=== PATIENT | male | born 1955 | race Caucasian/White ===

== ENCOUNTER 2016-07-01 19:00 | Inpatient (IN) | payer MEDICAID, MEDICARE ==
[~2016-07-01] VITALS: Ht 180.3 cm; Wt 62.2 kg
[~2016-07-01 19:00] MED LIST: ARIP15TA3 PO; ARIP400S IM; DIVA500T35 PO; DSS100 PO; LEVE500T53 PO; OMEP20 PO
[2016-07-01 20:16] VITALS: BP 102/63
[2016-07-01] MEDS: LORazepam 2 MG TABLET PO PRN (23:08)
[2016-07-02] MEDS: ZOLPIDEM TARTRATE 10 MG TABLET PO PRN ×2 (01:10→21:06)
[2016-07-02] MEDS: QUEtiapine FUMARATE 100 MG TABLET PO PRN ×2 (01:10→14:46)
[2016-07-02 01:11] VITALS: BP 108/77
[2016-07-02] MEDS ORDERED: PNEUMOCOCCAL VACCINE POLYVALENT 0.5 ML VIAL [PPSV23] IM ONE (01:45)
[2016-07-02] MEDS ORDERED: -PHARMACY VACCINE NOTE- MISC ONE ×2 (01:45)
[2016-07-02] MEDS: LORazepam 2 MG TABLET PO PRN ×3 (05:54→19:56)
[2016-07-02 06:49] LABS: BASOPHILS % (AUTO) 3.4 % (0.0-2.0); EOSINOPHILS % (AUTO) 3.8 % (1.0-6.0); HEMATOCRIT 29.9 % (41-53); HEMOGLOBIN 9.3 g/dL (13.5-17.5); LYMPHOCYTES # (AUTO) 1.9 K/uL (1.0-4.8); LYMPHOCYTES % (AUTO) 32.5 % (22.0-44.0); MEAN CORPUSCULAR HEMOGLOBIN 24.9 pg (26.0-34.0); MEAN CORPUSCULAR HGB CONC 30.9 G/dL (31.0-37.0); MEAN CORPUSCULAR VOLUME 81 fL (80-100); MONOCYTES # (AUTO) 0.6 K/uL (0.1-1.0); MONOCYTES % (AUTO) 9.7 % (2.0-9.0); NEUTROPHILS % (AUTO) 50.6 % (40.0-70.0); PLATELET COUNT (AUTO) 334 K/uL (150-450); RED BLOOD CELL COUNT(AUTO) 3.71 MIL/uL (4.50-5.90); RED CELL DISTRIBUTION WIDTH 20.1 % (11.5-14.5); WHITE BLOOD COUNT (AUTO) 5.9 K/uL (4.5-11.0)
[2016-07-02 06:51] LABS: ALANINE AMINOTRANSFERASE 18 U/L (12-78); ALBUMIN 2.8 g/dL (3.4-5.0); ANION GAP 10 mmol/L (8-16); ASPARTATE AMINOTRANSFERASE 16 U/L (15-37); BILIRUBIN,TOTAL 0.1 mg/dL (0.1-1.0); CALCIUM, TOTAL 8.1 mg/dL (8.8-10.5); CARBON DIOXIDE 25 mmol/L (22-29); CHLORIDE 103 mmol/L (98-107); CREATININE 0.76 mg/dL (0.60-1.30); GLOMERULAR FILTR. RATE CALC > 60 mL/min (>60); SODIUM SERUM 138 mmol/L (136-145); TOTAL PROTEIN, SERUM 6.9 g/dL (6.4-8.2); UREA NITROGEN, BLOOD 25 mg/dL (7-18)
[2016-07-02 08:32] VITALS: BP 109/66
[2016-07-02] MEDS: ClonazePAM 1 MG TABLET PO SCH ×2 (09:03→17:03)
[2016-07-02] MEDS: LevETIRAcetam 500 MG TABLET PO SCH ×2 (09:03→17:03)
[2016-07-02] MEDS: GABAPENTIN 300 MG CAPSULE PO SCH ×3 (09:03→17:03)
[2016-07-02] MEDS ORDERED: BACITRACIN 28.4 GM OINTMENT TP PRN (10:15)
[2016-07-02] MEDS ORDERED: CloNIDine HCL 0.1 MG TABLET PO PRN (10:15)
[2016-07-02] MEDS ORDERED: PETROLATUM,WHITE 71 GM JELLY TP PRN (10:15)
[2016-07-02] MEDS ORDERED: MAG HYDROX/AL HYDROX/SIMETH ES 30 ML SUSPENSION UDCUP PO PRN (10:15)
[2016-07-02] MEDS ORDERED: MAGNESIUM HYDROXIDE SUSPENSION 30 ML UDCUP PO PRN (10:15)
[2016-07-02] MEDS ORDERED: BENZOCAINE/MENTHOL LOZENGE [8 LOZENGES/PACKET] MM PRN (10:15)
[2016-07-02] MEDS ORDERED: ONDANSETRON HCL 4 MG TABLET PO PRN (10:15)
[2016-07-02] MEDS ORDERED: ALBUTEROL SULFATE HFA 90 MCG/PUFF 8 GM INHALER IH PRN (10:15)
[2016-07-02] MEDS: CIPROFLOXACIN HCL 0.2%/HYDROCORT 1% 10 ML OTIC SUSPENSION AU SCH ×2 (11:55→17:04)
[2016-07-02] MEDS: RisperiDONE 1 MG TABLET PO SCH (18:50)
[2016-07-03] MEDS: LORazepam 2 MG TABLET PO PRN ×4 (00:51→20:11)
[2016-07-03] MEDS: QUEtiapine FUMARATE 100 MG TABLET PO PRN ×3 (00:51→12:04)
[2016-07-03 00:55] VITALS: BP 106/71
[2016-07-03] MEDS: RisperiDONE 1 MG TABLET PO SCH ×2 (07:55→17:46)
[2016-07-03] MEDS: GABAPENTIN 300 MG CAPSULE PO SCH ×3 (07:55→17:46)
[2016-07-03] MEDS: LevETIRAcetam 500 MG TABLET PO SCH ×2 (07:55→17:46)
[2016-07-03] MEDS: OMEPRAZOLE 20 MG CAPSULE PO SCH (07:55)
[2016-07-03] MEDS: MULTIVITAMINS WITH MINERALS, THERAPEUTIC TABLET PO SCH (07:55)
[2016-07-03] MEDS: DOCUSATE SODIUM 100 MG CAPSULE PO SCH (07:55)
[2016-07-03] MEDS: CIPROFLOXACIN HCL 0.2%/HYDROCORT 1% 10 ML OTIC SUSPENSION AU SCH ×2 (07:56→17:46)
[2016-07-03 08:06] VITALS: BP 104/71
[2016-07-03 08:15] VITALS: BP 104/71
[2016-07-03] MEDS: ACETAMINOPHEN 325 MG TABLET PO PRN (08:15)
[2016-07-03] MEDS: ZOLPIDEM TARTRATE 10 MG TABLET PO PRN (20:59)
[2016-07-04] MEDS: LORazepam 2 MG TABLET PO PRN ×3 (07:00→16:45)
[2016-07-04 08:05] VITALS: BP 103/72
[2016-07-04] MEDS: DOCUSATE SODIUM 100 MG CAPSULE PO SCH (09:33)
[2016-07-04] MEDS: LevETIRAcetam 500 MG TABLET PO SCH ×2 (09:33→16:14)
[2016-07-04] MEDS: OMEPRAZOLE 20 MG CAPSULE PO SCH (09:33)
[2016-07-04] MEDS: GABAPENTIN 300 MG CAPSULE PO SCH ×3 (09:33→16:14)
[2016-07-04] MEDS: MULTIVITAMINS WITH MINERALS, THERAPEUTIC TABLET PO SCH (09:33)
[2016-07-04] MEDS: RisperiDONE 1 MG TABLET PO SCH ×2 (09:33→16:14)
[2016-07-04] MEDS: CIPROFLOXACIN HCL 0.2%/HYDROCORT 1% 10 ML OTIC SUSPENSION AU SCH ×2 (09:33→16:13)
[2016-07-04 10:05] VITALS: BP 103/72
[2016-07-04] MEDS: ACETAMINOPHEN 325 MG TABLET PO PRN (10:06)
[2016-07-04 16:09] VITALS: BP 123/76
[2016-07-04] MEDS: ZOLPIDEM TARTRATE 10 MG TABLET PO PRN (21:06)
[2016-07-05] MEDS: LORazepam 2 MG TABLET PO PRN ×3 (06:57→18:05)
[2016-07-05] MEDS: RisperiDONE 1 MG TABLET PO SCH ×2 (08:30→16:25)
[2016-07-05] MEDS: LevETIRAcetam 500 MG TABLET PO SCH ×2 (08:30→16:25)
[2016-07-05] MEDS: GABAPENTIN 300 MG CAPSULE PO SCH ×3 (08:30→16:25)
[2016-07-05] MEDS: MULTIVITAMINS WITH MINERALS, THERAPEUTIC TABLET PO SCH (08:30)
[2016-07-05] MEDS: OMEPRAZOLE 20 MG CAPSULE PO SCH (08:30)
[2016-07-05] MEDS: DOCUSATE SODIUM 100 MG CAPSULE PO SCH (08:31)
[2016-07-05] MEDS: CIPROFLOXACIN HCL 0.2%/HYDROCORT 1% 10 ML OTIC SUSPENSION AU SCH ×2 (08:31→16:25)
[2016-07-05 09:11] VITALS: BP 102/73
[2016-07-05 09:51] VITALS: BP 102/73
[2016-07-05] MEDS: QUEtiapine FUMARATE 100 MG TABLET PO PRN (09:51)
[2016-07-05] MEDS: ACETAMINOPHEN 325 MG TABLET PO PRN (09:51)
[2016-07-05] MEDS ORDERED: HYDROCODONE/ACETAMINOPHEN 5-325 MG TABLET PO PRN (12:30)
[2016-07-05 13:27] VITALS: BP 110/75
[2016-07-05 16:28] VITALS: BP 135/69
[2016-07-05] MEDS: HYDROCODONE/ACETAMINOPHEN 5-325 MG TABLET PO PRN (19:28)
[2016-07-05 19:30] VITALS: BP 131/71
[2016-07-06] MEDS: LORazepam 2 MG TABLET PO PRN ×3 (03:38→14:11)
[2016-07-06 03:44] VITALS: BP 115/70
[2016-07-06] MEDS: HYDROCODONE/ACETAMINOPHEN 5-325 MG TABLET PO PRN ×2 (03:44→13:04)
[2016-07-06 08:00] VITALS: BP 104/70
[2016-07-06] MEDS: OMEPRAZOLE 20 MG CAPSULE PO SCH (08:10)
[2016-07-06] MEDS: MULTIVITAMINS WITH MINERALS, THERAPEUTIC TABLET PO SCH (08:10)
[2016-07-06] MEDS: RisperiDONE 1 MG TABLET PO SCH ×2 (08:10→17:22)
[2016-07-06] MEDS: CIPROFLOXACIN HCL 0.2%/HYDROCORT 1% 10 ML OTIC SUSPENSION AU SCH ×2 (08:10→17:22)
[2016-07-06] MEDS: LevETIRAcetam 500 MG TABLET PO SCH ×2 (08:11→17:22)
[2016-07-06] MEDS: DOCUSATE SODIUM 100 MG CAPSULE PO SCH (08:11)
[2016-07-06] MEDS: GABAPENTIN 300 MG CAPSULE PO SCH ×3 (08:11→17:22)
[2016-07-06] MEDS: QUEtiapine FUMARATE 100 MG TABLET PO PRN (13:03)
[2016-07-06 13:04] VITALS: BP 110/70
[2016-07-06 18:04] VITALS: BP 104/67
[2016-07-07] MEDS: LOPERAMIDE HCL 2 MG CAPSULE PO PRN ×3 (00:32→04:55)
[2016-07-07 02:45] VITALS: BP 115/72
[2016-07-07] MEDS: HYDROCODONE/ACETAMINOPHEN 5-325 MG TABLET PO PRN ×3 (02:47→19:02)
[2016-07-07] MEDS: LORazepam 2 MG TABLET PO PRN ×4 (04:56→20:48)
[2016-07-07] MEDS: CIPROFLOXACIN HCL 0.2%/HYDROCORT 1% 10 ML OTIC SUSPENSION AU SCH ×2 (07:59→16:21)
[2016-07-07] MEDS: LevETIRAcetam 500 MG TABLET PO SCH ×2 (07:59→16:06)
[2016-07-07] MEDS: MULTIVITAMINS WITH MINERALS, THERAPEUTIC TABLET PO SCH (08:00)
[2016-07-07] MEDS: OMEPRAZOLE 20 MG CAPSULE PO SCH (08:00)
[2016-07-07] MEDS: RisperiDONE 1 MG TABLET PO SCH ×2 (08:00→16:06)
[2016-07-07] MEDS: GABAPENTIN 300 MG CAPSULE PO SCH ×3 (08:00→16:06)
[2016-07-07 08:06] VITALS: BP 93/67
[2016-07-07] MEDS: DOCUSATE SODIUM 100 MG CAPSULE PO SCH (09:00)
[2016-07-07 10:42] VITALS: BP 124/76
[2016-07-07 19:02] VITALS: BP 110/64
[2016-07-07 20:02] VITALS: BP 121/69
[2016-07-07] MEDS: ZOLPIDEM TARTRATE 10 MG TABLET PO PRN (22:38)
[2016-07-08 04:45] VITALS: BP 110/68
[2016-07-08] MEDS: HYDROCODONE/ACETAMINOPHEN 5-325 MG TABLET PO PRN ×2 (04:57→13:00)
[2016-07-08] MEDS: LORazepam 2 MG TABLET PO PRN ×2 (04:57→12:11)
[2016-07-08] MEDS: OMEPRAZOLE 20 MG CAPSULE PO SCH (08:00)
[2016-07-08] MEDS: RisperiDONE 1 MG TABLET PO SCH (08:00)
[2016-07-08] MEDS: GABAPENTIN 300 MG CAPSULE PO SCH ×2 (08:00→12:11)
[2016-07-08] MEDS: MULTIVITAMINS WITH MINERALS, THERAPEUTIC TABLET PO SCH (08:00)
[2016-07-08] MEDS: LevETIRAcetam 500 MG TABLET PO SCH (08:00)
[2016-07-08] MEDS: CIPROFLOXACIN HCL 0.2%/HYDROCORT 1% 10 ML OTIC SUSPENSION AU SCH (08:01)
[2016-07-08] MEDS: DOCUSATE SODIUM 100 MG CAPSULE PO SCH (08:05)
[2016-07-08 08:07] VITALS: BP 97/73
[2016-07-08] MEDS ORDERED: GABA-531 PO (10:28)
[2016-07-08] MEDS ORDERED: RISP2 PO (10:28)
[2016-07-08] MEDS ORDERED: CIPOTIC AU (10:31)
[2016-07-08] MEDS: QUEtiapine FUMARATE 100 MG TABLET PO PRN (10:53)
== END 2016-07-08 14:00 | disposition home or self-care (01) | DRG 885 ==
LOC: 3EC 19:00
PROVIDERS: ADMIT Psychiatry & Neurology Psychiatry; ATTEND Psychiatry & Neurology Psychiatry
DX: F25.0 Schizoaffective disorder, bipolar type (principal); E44.0 Moderate protein-calorie malnutrition; R45.851 Suicidal ideations; Z68.1 Body mass index [BMI] 19.9 or less, adult; D64.9 Anemia, unspecified; G40.909 Epilepsy, unspecified, not intractable, without status epilepticus; G89.29 Other chronic pain; H60.90 Unspecified otitis externa, unspecified ear; J44.9 Chronic obstructive pulmonary disease, unspecified; K21.9 Gastro-esophageal reflux disease without esophagitis; M19.90 Unspecified osteoarthritis, unspecified site; N43.3 Hydrocele, unspecified; N50.89 Other specified disorders of the male genital organs; R26.9 Unspecified abnormalities of gait and mobility; Z96.653 Presence of artificial knee joint, bilateral; Z96.649 Presence of unspecified artificial hip joint; Z88.6 Allergy status to analgesic agent; Z88.0 Allergy status to penicillin; Z88.8 Allergy status to other drugs, medicaments and biological substances; Z71.6 Tobacco abuse counseling; Z86.73 Personal history of transient ischemic attack (TIA), and cerebral infarction without residual deficits; Z79.899 Other long term (current) drug therapy; Z98.890 Other specified postprocedural states; Z81.8 Family history of other mental and behavioral disorders; Z28.21 Immunization not carried out because of patient refusal
CPT/HCPCS: 76870; 87081

== ENCOUNTER 2017-09-14 12:07 | Emergency (ER) | payer MEDICARE ==
[~2017-09-14 12:07] MED LIST changes: -ARIP15TA3 PO; -ARIP400S IM; +CIPOTIC AU; -DIVA500T35 PO; +GABA-531 PO; +RISP2 PO
== END 2017-09-14 15:04 | disposition left against medical advice (07) ==
LOC: EMS 12:10
DX: Z00.8 Encounter for other general examination (principal); Z53.21 Procedure and treatment not carried out due to patient leaving prior to being seen by health care provider